=== PATIENT | female | born 1940 | race Native Hawaiian/Other Pacific Islander ===

== ENCOUNTER 2017-06-01 13:46 | Observation (INO) | payer OTHER ==
[~2017-06-01] VITALS: Ht 170.2 cm; Wt 86.0 kg
[2017-06-01] MEDS ORDERED: METFORMIN ER1000 MG PO (14:01)
[2017-06-01] MEDS ORDERED: GLIP10TA55 PO (14:01)
[2017-06-01] MEDS ORDERED: DULOXETINE HCL60 MG PO (14:02)
[2017-06-01] MEDS ORDERED: AMBIEN5 MG PO (14:02)
[2017-06-01] MEDS ORDERED: LEVO-T88 MCG PO (14:03)
[2017-06-01 14:05] VITALS: BP 135/72; TEMP 98.3
[2017-06-01] MEDS ORDERED: ALEVE220 M1 OR (14:05)
[2017-06-01 14:46] LABS: PLATELET COUNT 288 K/uL (152-353)
[2017-06-01 14:49] LABS: POTASSIUM 3.9 mmol/L (3.6-5.2)
[2017-06-01] MEDS ORDERED: GLIM4TAB PO (18:32)
[2017-06-01 18:45] VITALS: BP 187/78; TEMP 98.2; Ht 170.2 cm; Wt 86.0 kg
[2017-06-01 20:00] VITALS: BP 193/86; TEMP 97.8
[2017-06-02 00:03] VITALS: BP 152/72; TEMP 98.3
[2017-06-02 04:00] VITALS: BP 159/73; TEMP 97.6
[2017-06-02 07:19] LABS: PLATELET COUNT 233 K/uL (152-353)
[2017-06-02 07:42] LABS: POTASSIUM 3.8 mmol/L (3.6-5.2)
[2017-06-02 08:33] VITALS: BP 140/62; TEMP 97.5
--- NOTE | 2017-06-02 12:13 | NUR ---
1145 CALLED TO ROOM PER PT AND PT'S SONS. PT AND FAMILY ARE REQUESTING TO BE DISCHARGED. ATTMEPTED TO EXPLAIN TO PT AND FAMILY THAT DR JONES WILL MAKE ROUNDS IN [facility]. SONS REQUESTED TO CALL MD HIMSELF. 1155 DR JONES NOTIFIED OF PT AND FAMILY REUQEST TO BE DISCHARGED HOME. DISCHARGE ORDERS REC'D VIA PHONE AND WIRTTEN. ALL EXPLAINED TO PT AND FAMILY.BOTH VERBAMARIS UNDERSTANDING
== END 2017-06-02 12:00 | disposition home or self-care (01) ==
LOC: ED 13:46 → MED/SURG 16:15
PROVIDERS: ADMIT Family Medicine
DX: R07.89 Other chest pain (principal); R42 Dizziness and giddiness; E11.9 Type 2 diabetes mellitus without complications; E03.8 Other specified hypothyroidism; M15.8 Other polyosteoarthritis; E86.0 Dehydration; M25.512 Pain in left shoulder
CPT/HCPCS: 36415; 80053; 81000; 82550; 83735; 84484; 85027; 93005; 96361; 96374; 99220; 99284; G0378; J1650; J1885

== ENCOUNTER 2019-04-30 13:10 | Outpatient (CLI) | payer OTHER ==
[~2019-04-30 13:10] MED LIST: ALEVE220 M1 OR; AMBIEN5 MG PO; DULOXETINE HCL60 MG PO; GLIM4TAB PO; GLIP10TA55 PO; LEVO-T88 MCG PO; METFORMIN ER1000 MG PO
[2019-04-30 13:28] LABS: PLATELET COUNT 310 K/uL (152-353)
[2019-04-30 13:35] LABS: POTASSIUM 4.5 mmol/L (3.6-5.2)
== END 2019-04-30 23:28 | disposition home or self-care (01) ==
LOC: LABW 13:10
PROVIDERS: Internal Medicine Cardiovascular Disease
DX: Z79.899 Other long term (current) drug therapy (principal); R06.02 Shortness of breath
CPT/HCPCS: 36415; 80048; 83880; 85027

== ENCOUNTER 2019-06-19 15:54 | Outpatient (CLI) | payer OTHER ==
[2019-06-19 16:34] LABS: PLATELET COUNT 298 K/uL (152-353)
[2019-06-19 21:43] LABS: POTASSIUM 4.7 mmol/L (3.6-5.2)
== END 2019-06-19 20:01 | disposition home or self-care (01) ==
LOC: LABW 15:54
PROVIDERS: Nurse Practitioner Family
DX: R17 Unspecified jaundice (principal); R10.11 Right upper quadrant pain; R06.02 Shortness of breath; R53.82 Chronic fatigue, unspecified
CPT/HCPCS: 36415; 80053; 80074; 82140; 82150; 83690; 83880; 85027

== ENCOUNTER 2019-06-20 13:22 | Observation (INO) | payer OTHER ==
[~2019-06-20] VITALS: Ht 170.2 cm; Wt 89.5 kg
--- NOTE | 2019-06-20 18:55 | NUR ---
PT DISCHARGED AND TRANSFERRED TO [facility] IN [place] PER DR RUSSELL REQUEST, IV TO LEFT FOREARM 22G, NS @125ML/HR LEFT IN FOR THE TRANSPORT. FAMILY FOLLOWING ALONG BEHIND TRANSPORT. DISCHARGE INSTRUCTIONS GIVEN TO PATIENTS FAMILY ALONG WITH PAPERWORK AND RADIOLOGY DISK GIVEN TO TRANSPORT. PT IN [facility] NOTED. NO C/O PAIN AT TIME OF DISCHARGE.
[2019-06-20 20:51] VITALS: BP 130/63; TEMP 97.3; Ht 170.2 cm; Wt 89.5 kg
== END 2019-06-20 18:55 | disposition short-term general hospital (02) ==
LOC: MED/SURG 13:22
PROVIDERS: ADMIT Family Medicine
DX: K81.0 Acute cholecystitis (principal); R17 Unspecified jaundice; N30.00 Acute cystitis without hematuria; K85.80 Other acute pancreatitis without necrosis or infection; D72.828 Other elevated white blood cell count; E11.9 Type 2 diabetes mellitus without complications; I10 Essential (primary) hypertension; E03.8 Other specified hypothyroidism; E78.49 Other hyperlipidemia; G47.09 Other insomnia; M15.8 Other polyosteoarthritis; R42 Dizziness and giddiness; F32.89 Other specified depressive episodes; R13.19 Other dysphagia
CPT/HCPCS: 36415; 82140; 82550; 83605; 84484; 86318; 87040; 93005; 96365; 96366; 96367; 96375; 99220; G0378; G0379; J0696; J2175

== ENCOUNTER 2020-11-01 18:17 | Outpatient (CLI) | payer OTHER | END 2020-11-01 20:53 | disposition home or self-care (01) | LOC: CT 18:17 | PROVIDERS: ATTEND Nurse Practitioner Family | DX: E11.9 Type 2 diabetes mellitus without complications (principal); E03.8 Other specified hypothyroidism; G47.09 Other insomnia; I10 Essential (primary) hypertension; R42 Dizziness and giddiness; W19.XXXA Unspecified fall, initial encounter; S09.8XXA Other specified injuries of head, initial encounter ==

== ENCOUNTER 2020-11-26 15:41 | Outpatient (CLI) | payer OTHER | END 2020-11-26 19:39 | disposition home or self-care (01) | LOC: LAB 15:41 | PROVIDERS: ATTEND Nurse Practitioner Family | DX: E03.8 Other specified hypothyroidism (principal); E11.9 Type 2 diabetes mellitus without complications; R82.998 Other abnormal findings in urine | CPT/HCPCS: 81000; 82043; 82570; 87077; 87086; 87088; 87186 ==

== ENCOUNTER 2020-12-06 11:00 | Outpatient (CLI) | payer OTHER ==
[2020-12-06 12:01] LABS: PLATELET COUNT 316 K/uL (152-353)
[2020-12-06 12:06] LABS: POTASSIUM 4.4 mmol/L (3.6-5.2)
== END 2020-12-06 19:33 | disposition home or self-care (01) ==
LOC: LAB 11:00
PROVIDERS: ATTEND Nurse Practitioner Family
DX: E03.8 Other specified hypothyroidism (principal); E11.9 Type 2 diabetes mellitus without complications
CPT/HCPCS: 80053; 85027

== ENCOUNTER 2021-05-19 19:46 | Emergency (ER) | payer OTHER ==
[~2021-05-19] VITALS: Ht 170.2 cm; Wt 89.4 kg
[2021-05-19 19:46] VITALS: TEMP 97.2
[2021-05-19 20:12] LABS: PLATELET COUNT 285 K/uL (152-353)
[2021-05-19 20:19] LABS: POTASSIUM 3.9 mmol/L (3.6-5.2); SODIUM 137 mmol/L (136-145)
[2021-05-19 20:28] LABS: PARTIAL THROMBOPLASTIN TIME 26.1 SECONDS (24.5-33.6)
[2021-05-20] VITALS: BP 125/58
== END 2021-05-20 00:30 | disposition short-term general hospital (02) ==
LOC: ED 19:55
PROVIDERS: Emergency Medicine
DX: I48.91 Unspecified atrial fibrillation (principal); R79.89 Other specified abnormal findings of blood chemistry; R06.02 Shortness of breath; Z20.822 Contact with and (suspected) exposure to COVID-19
CPT/HCPCS: 80053; 82550; 83880; 84484; 85027; 85379; 85610; 85730; 87635; 93005; 96374; 96375; 99284; J1200; J2270; J2405; J3490; U0003

== ENCOUNTER 2021-10-07 14:34 | Emergency (ER) | payer OTHER ==
[~2021-10-07] VITALS: Ht 170.2 cm; Wt 89.4 kg
[2021-10-07 14:36] VITALS: TEMP 97.9
[2021-10-07 14:49] LABS: PLATELET COUNT 288 K/uL (152-353)
[2021-10-07 14:59] LABS: POTASSIUM 4.7 mmol/L (3.6-5.2)
[2021-10-07 16:44] VITALS: BP 126/64
== END 2021-10-07 16:45 | disposition home or self-care (01) ==
LOC: ED 14:34
PROVIDERS: Hospitalist
DX: E86.0 Dehydration (principal); S80.02XA Contusion of left knee, initial encounter; W18.39XA Other fall on same level, initial encounter; Y92.89 Other specified places as the place of occurrence of the external cause
CPT/HCPCS: 80053; 80320; 82550; 83880; 84484; 85027; 85610; 85730; 93005; 96360; 96361; 99284

== ENCOUNTER 2022-03-03 10:53 | Outpatient (CLI) | payer OTHER | END 2022-03-03 20:47 | disposition home or self-care (01) | LOC: US 10:53 | PROVIDERS: ATTEND Internal Medicine | DX: N18.32 Chronic kidney disease, stage 3b (principal) ==

== ENCOUNTER 2022-11-29 13:07 | Outpatient (CLI) | payer OTHER ==
[2022-11-29 13:40] LABS: POTASSIUM 4.3 mmol/L (3.6-5.2)
== END 2022-11-29 21:38 | disposition home or self-care (01) ==
LOC: LABW 13:07
PROVIDERS: ATTEND Internal Medicine Cardiovascular Disease
DX: Z79.899 Other long term (current) drug therapy (principal); R06.09 Other forms of dyspnea
CPT/HCPCS: 36415; 80048; 83880

== ENCOUNTER 2023-02-14 15:31 | Outpatient (CLI) | payer OTHER | END 2023-02-14 18:59 | disposition home or self-care (01) | LOC: RAD 15:31 | PROVIDERS: ATTEND Internal Medicine | DX: M79.671 Pain in right foot (principal) ==